=== PATIENT | female | born 1985 | race African-American/Black ===

== ENCOUNTER 2020-01-29 19:56 | Emergency (ER) | payer BC, MEDICAID ==
[~2020-01-29] VITALS: Ht 165.1 cm; Wt 97.0 kg
[2020-01-29] MEDS ORDERED: MAGNESIUM/ALUMINUM HYDROXIDE/SIMETHICONE 30ML UDC PO STA (20:57)
[2020-01-29] MEDS ORDERED: VISCOUS LIDOCAINE 2% 15 ML UDC MM STA (20:58)
[2020-01-29 21:23] LABS: BASOPHILS % 0.8 % (0.0-2.0); EOSINOPHILS % 2.2 % (0.0-5.0); HEMATOCRIT. 38.7 % (36.0-48.0); HEMOGLOBIN. 12.6 g/dL (12.0-16.0); LYMPHOCYTES % 29.4 % (20.0-50.0); MEAN CORPUSCULAR HEMOGLOBIN 29.4 pg (28.0-32.0); MEAN CORPUSCULAR VOLUME 90.6 fL (81.0-99.0); MEAN PLATELET VOLUME 10.1 fl (7.4-10.4); MONOCYTES % 7.8 % (2.0-8.0); NEUTROPHILS % 59.8 % (40.0-76.0); PLATELET 200 x1000/uL (130-400); RED BLOOD CELL COUNT 4.27 mill/uL (4.2-5.4); RED CELL DISTRIBUTION WIDTH 14.5 % (11.6-14.6)
[2020-01-29 21:27] LABS: CHLORIDE 110 mEq/L (98-107)
[2020-01-30 00:13] VITALS: BP 135/74
[2020-01-30] MEDS ORDERED: ASPIRIN 81MG TABLET PO ONE (00:15)
== END 2020-01-30 00:25 | disposition home or self-care (01) ==
LOC: ER 19:56
DX: R07.89 Other chest pain (principal); R73.9 Hyperglycemia, unspecified
CPT/HCPCS: 36415; 71045; 80053; 81025; 83880; 84484; 85025; 93005; 99285

== ENCOUNTER 2020-02-02 17:25 | Emergency (ER) | payer MEDICAID ==
[~2020-02-02] VITALS: Ht 165.1 cm; Wt 98.0 kg
[2020-02-02] MEDS ORDERED: SODIUM CHLORIDE 0.9% 1,000 ML IV ONE (18:22)
[2020-02-02 19:12] LABS: *AMPHETAMINES SCREEN URINE NEGATIVE (NEGATIVE)
[2020-02-02 19:13] LABS: *BARBITURATES SCREEN URINE NEGATIVE (NEGATIVE); *BENZODIAZEPINES SCREEN URINE NEGATIVE (NEGATIVE); *COCAINE SCREEN URINE NEGATIVE (NEGATIVE); METHADONE URINE SCREEN NEGATIVE (NEGATIVE); OPIATES URINE SCREEN NEGATIVE (NEGATIVE); PHENCYCLIDINE URINE SCREEN NEGATIVE (NEGATIVE)
[2020-02-02 19:17] LABS: CANNABINOID URINE SCREEN PRESUMTIVE POSITIVE (NEGATIVE)
[2020-02-02 19:27] LABS: BASOPHILS % 0.6 % (0.0-2.0); EOSINOPHILS % 0.2 % (0.0-5.0); HEMATOCRIT. 39.4 % (36.0-48.0); HEMOGLOBIN. 13.1 g/dL (12.0-16.0); MEAN CORPUSCULAR HEMOGLOBIN 29.8 pg (28.0-32.0); MEAN CORPUSCULAR VOLUME 89.4 fL (81.0-99.0); MEAN PLATELET VOLUME 9.6 fl (7.4-10.4); MONOCYTES % 6.4 % (2.0-8.0); NEUTROPHILS % 73.8 % (40.0-76.0); PLATELET 227 x1000/uL (130-400); RED CELL DISTRIBUTION WIDTH 13.4 % (11.6-14.6)
[2020-02-02 19:36] LABS: CHLORIDE 105 mEq/L (98-107)
[2020-02-02 19:50] LABS: HCG SCREEN POSITIVE
[2020-02-02 21:30] VITALS: BP 82/87
[2020-02-02 22:21] LABS: CLARITY URINE CLEAR (CLEAR); COLOR URINE YELLOW (YELLOW); KETONES URINE TRACE (NEGATIVE); LEUKOCYTE ESTERASE URINE 1+ (NEGATIVE); NITRITE URINE NEGATIVE (NEGATIVE); OCCULT BLOOD URINE NEGATIVE (NEGATIVE); PROTEIN URINE NEGATIVE (NEGATIVE); SPECIFIC GRAVITY URINE 1.034 (1.005-1.030)
== END 2020-02-02 22:28 | disposition home or self-care (01) ==
LOC: ER 17:29
DX: O26.891 Other specified pregnancy related conditions, first trimester (principal); R53.1 Weakness; R06.02 Shortness of breath; R07.89 Other chest pain; F41.9 Anxiety disorder, unspecified; O99.320 Drug use complicating pregnancy, unspecified trimester; F12.10 Cannabis abuse, uncomplicated; Z3A.00 Weeks of gestation of pregnancy not specified; O09.529 Supervision of elderly multigravida, unspecified trimester
CPT/HCPCS: 36415; 71045; 80053; 80305; 81003; 84443; 84484; 84702; 84703; 85025; 93005; 96360; 99285; J7030